=== PATIENT | male | born 1995 | race Two or more races ===

== ENCOUNTER 2022-06-08 13:48 | Emergency (ER) | payer OTHER ==
[~2022-06-08] VITALS: Ht 188 cm; Wt 117.0 kg
--- NOTE | 2022-06-08 15:00 | NUR ---
BIBS W/ C/O L-SIDED CHEST PAIN (SHARP), LUE PARESTHESIA ONSET 2 HOURS AGO. TO ER BED 1.
--- NOTE | 2022-06-08 15:17 | NUR ---
PHLEB AT BEDSIDE FOR BLOOD DRAW
[2022-06-08] MEDS ORDERED: IBUPROFEN 600 MG TABLET ONE (18:12)
[2022-06-08] MEDS ORDERED: IBUP-1955 PO (18:13)
--- NOTE | 2022-06-08 18:17 | NUR ---
Patient discharged to home in stable condition. Written and verbal after care instructions given. Patient verbalizes understanding of instruction.
[2022-06-08 18:18] VITALS: BP 124/68
[2022-06-08] MEDS ORDERED: IBUPROFEN 600 MG TABLET PO ONE (18:30)
== END 2022-06-08 18:18 | disposition home or self-care (01) ==
LOC: EDBD → ER 13:52
DX: R07.89 Other chest pain (principal); Z88.0 Allergy status to penicillin
CPT/HCPCS: 36415; 71045-TC; 84484-TC

== ENCOUNTER 2022-06-14 16:26 | Emergency (ER) | payer OTHER ==
[~2022-06-14] VITALS: Ht 188 cm; Wt 81.6 kg
[~2022-06-14 16:26] MED LIST: IBUP-1955 PO
[2022-06-14 16:40] VITALS: BP 132/76
[2022-06-14] MEDS ORDERED: HYDR30CR79 TP (17:25)
--- NOTE | 2022-06-14 17:32 | NUR ---
Patient discharged to home in stable condition. Written and verbal after care instructions given. Patient verbalizes understanding of instruction.
== END 2022-06-14 17:33 | disposition home or self-care (01) ==
LOC: EDBD 16:35 → ER 16:35
DX: K62.89 Other specified diseases of anus and rectum (principal); K64.9 Unspecified hemorrhoids